=== PATIENT | female | born 1985 | race Caucasian/White ===

== ENCOUNTER 2018-06-26 11:17 | Emergency (ER) | payer OTHER ==
[~2018-06-26] VITALS: Ht 162.6 cm; Wt 68.9 kg
== END 2018-06-26 12:30 | disposition home or self-care (01) ==
LOC: ER 11:17
DX: S81.821A Laceration with foreign body, right lower leg, initial encounter (principal); W18.09XA Striking against other object with subsequent fall, initial encounter; Y93.89 Activity, other specified; Y92.89 Other specified places as the place of occurrence of the external cause; Y99.8 Other external cause status

== ENCOUNTER 2018-07-10 05:02 | Emergency (ER) | payer OTHER ==
[~2018-07-10] VITALS: Ht 162.6 cm; Wt 68.9 kg
== END 2018-07-10 08:01 | disposition home or self-care (01) ==
LOC: ER 05:02
DX: Z48.02 Encounter for removal of sutures (principal)

== ENCOUNTER 2022-05-11 08:39 | Day surgery (SDC) | payer OTHER ==
[2022-05-11] MEDS ORDERED: IBU800 MG PO (11:27)
== END 2022-05-11 16:20 | disposition home or self-care (01) ==
LOC: CIR.AMB 08:39
PROVIDERS: ATTEND Obstetrics & Gynecology Gynecology
DX: Z30.2 Encounter for sterilization (principal); N83.8 Other noninflammatory disorders of ovary, fallopian tube and broad ligament; Z64.1 Problems related to multiparity; Z20.822 Contact with and (suspected) exposure to COVID-19; Z91.013 Allergy to seafood